=== PATIENT | male | born 1980 | race Caucasian/White ===

== ENCOUNTER 2023-01-12 08:19 | Day surgery (SDC) | payer OTHER ==
[2023-01-12] MEDS ORDERED: LIDOCAINE HCL/MPF 1% 30 ML VIAL IJ ONE (09:07)
[2023-01-12] MEDS ORDERED: BUPIVACAINE MPF 0.5% W/EPI INJ 30 ML VIAL ONE (09:07)
[2023-01-12] MEDS ORDERED: MIDAZOLAM HCL 2 MG/2ML VIAL ONE (09:49)
[2023-01-12] MEDS ORDERED: LABETALOL HCL IV 100MG VIAL ONE ×2 (09:49→12:28)
[2023-01-12] MEDS ORDERED: FENTANYL PF 100MCG/2ML AMPUL ONE ×3 (09:49→12:42)
[2023-01-12] MEDS ORDERED: METRONIDAZOLE 500MG/ NS 100ML 100 ML IV ONE (10:42)
[2023-01-12] MEDS ORDERED: THROMBIN (BOVINE) 5,000 UNITS VIAL TP ONE (11:10)
[2023-01-12] MEDS ORDERED: GELATIN SPONGE,ABSORBABLE 1 EA SPONGE TP ONE (11:11)
[2023-01-12] MEDS ORDERED: GELATIN SPONGE,ABSORBABLE 1 SPONGE SPONGE TP ONE (11:11)
[2023-01-12] MEDS ORDERED: MORPHINE SULFATE INJ 2 MG/ML DISP.SYRIN IV PRN (12:00)
[2023-01-12] MEDS ORDERED: ONDANSETRON HCL/PF 4 MG/2 ML VIAL IVP PRN (12:00)
[2023-01-12] MEDS ORDERED: IBUPROFEN 400 MG TABLET PO PRN (12:00)
[2023-01-12] MEDS ORDERED: ACETAMINOPHEN 325 MG TABLET PO PRN (12:00)
[2023-01-12] MEDS ORDERED: GABAPENTIN 100 MG CAPSULE PO SCH (13:00)
== END 2023-01-12 13:43 | disposition home or self-care (01) ==
LOC: DS 08:19
PROVIDERS: ATTEND Surgery
DX: K64.4 Residual hemorrhoidal skin tags (principal); K62.89 Other specified diseases of anus and rectum; N41.1 Chronic prostatitis; I10 Essential (primary) hypertension; Z98.890 Other specified postprocedural states; Z79.899 Other long term (current) drug therapy
CPT/HCPCS: 45300; 45500; 46221; J0690; J1885; J2250; J2405; J2704; J3010; J3490; J7030; J7050